=== PATIENT | female | born 1995 | race African-American/Black ===

== ENCOUNTER 2020-03-25 11:06 | Outpatient (CLI) | payer MEDICAID ==
[2016-03-04 04:39] VITALS: BMI 37.0
[~2020-03-25 11:06] MED LIST: MOTRIN600 MG PO; PERCOCET 5-3251 TAB PO; PRENAVITE1 TAB PO
[2020-03-25 11:59] LABS: UDS - AMPHET NEGATIVE QUAL (NEGATIVE); UDS - BARB NEGATIVE QUAL (NEGATIVE); UDS - BENZO NEGATIVE QUAL (NEGATIVE); UDS - COCAINE NEGATIVE QUAL (NEGATIVE); UDS - OPIATE NEGATIVE QUAL (NEGATIVE); UDS - PCP NEGATIVE QUAL (NEGATIVE); UDS - THC NEGATIVE QUAL (NEGATIVE)
[2020-03-25 12:30] LABS: BACTERIA FEW /HPF (NONE SEEN); BILIRUBIN NEGATIVE (NEGATIVE); EPITHELIAL CELLS OCC /hpf (0-5); KETONE NEGATIVE (NEGATIVE); NITRITE NEGATIVE (NEGATIVE); UROBILINOGEN NORMAL mg/dL (< 2); WHITE CELLS - URINE 0-5 HPF (0-4)
[2020-03-25] MEDS ORDERED: MACROBID100 MG PO (16:03)
== END 2020-03-25 14:49 | disposition home or self-care (01) ==
LOC: D.LDO 11:06
PROVIDERS: ATTEND Obstetrics & Gynecology
DX: O36.8190 Decreased fetal movements, unspecified trimester, not applicable or unspecified (principal)

== ENCOUNTER 2020-04-11 10:53 | Outpatient (CLI) | payer MEDICAID ==
[2016-03-04 04:39] VITALS: BMI 37.0
[~2020-04-11 10:53] MED LIST changes: +MACROBID100 MG PO
[2020-04-11] MEDS ORDERED: NORMODYNE / TR100 MG PO (11:07)
[2020-04-11] MEDS ORDERED: ZOLOFT25 MG PO (11:07)
== END 2020-04-11 11:39 | disposition home or self-care (01) ==
LOC: D.LDO 10:53
PROVIDERS: ATTEND Student in an Organized Health Care Education/Training Program
DX: O16.9 Unspecified maternal hypertension, unspecified trimester (principal)

== ENCOUNTER 2020-04-15 10:53 | Outpatient (CLI) | payer MEDICAID ==
[2016-03-04 04:39] VITALS: BMI 37.0
[~2020-04-15 10:53] MED LIST changes: +NORMODYNE / TR100 MG PO; +ZOLOFT25 MG PO
== END 2020-04-15 12:10 | disposition home or self-care (01) ==
LOC: D.LDO 10:53
PROVIDERS: ATTEND Student in an Organized Health Care Education/Training Program
DX: O16.9 Unspecified maternal hypertension, unspecified trimester (principal)

== ENCOUNTER 2020-04-18 10:59 | Outpatient (CLI) | payer MEDICAID ==
[2016-03-04 04:39] VITALS: BMI 37.0
== END 2020-04-18 11:46 | disposition home or self-care (01) ==
LOC: D.LDO 10:59
PROVIDERS: ATTEND Obstetrics & Gynecology
DX: O10.919 Unspecified pre-existing hypertension complicating pregnancy, unspecified trimester (principal)

== ENCOUNTER 2020-04-22 12:00 | Outpatient (CLI) | payer MEDICAID ==
[2016-03-04 04:39] VITALS: BMI 37.0
[2020-04-22 12:49] LABS: CALC OSMOLALITY 262 mosm/kg (275-300); CALCIUM 8.5 mg/dL (8.5-10.1); CARBON DIOXIDE 25.2 mmol/L (21.0-32.0); CHLORIDE - SERUM 102 mmol/L (98-107); CREATININE - SERUM 0.6 mg/dL (0.6-1.3); POTASSIUM - SERUM 3.6 mmol/L (3.5-5.1); SODIUM 134 mmol/L (136-145); UREA NITROGEN 5 mg/dL (7-18); eGFR NON AFRICAN AMERICAN > 90 mL/min (90-120)
[2020-04-22 12:51] LABS: GLUCOSE 64 mg/dL (74-106)
[2020-04-22 13:10] LABS: ALKALINE PHOSPHATASE 60 U/L (30-120); ALT (SGPT) 12 U/L (10-68); BILIRUBIN - DIRECT 0.05 mg/dL (0.00-0.30); BILIRUBIN - INDIRECT 0.21 mg/dL (0.00-1.00); BILIRUBIN - TOTAL 0.26 mg/dL (0.2-1.3); PROTEIN - SERUM 5.7 g/dL (6.4-8.2)
[2020-04-22 13:14] LABS: ALBUMIN 2.6 g/dL (3.4-5.0)
[2020-04-22 13:24] LABS: URIC ACID 3.5 mg/dL (2.6-7.2)
== END 2020-04-23 10:57 | disposition home or self-care (01) ==
LOC: OBSVTIME → D.LDO 12:00 → D.LD 22:38 → OBSVTIME 22:38 → D.LD 22:38 → D.LDO 22:38 → D.LD 04-23 10:57
PROVIDERS: ATTEND Obstetrics & Gynecology
DX: O36.0131 Maternal care for anti-D [Rh] antibodies, third trimester, fetus 1 (principal)

== ENCOUNTER 2020-04-23 19:35 | Outpatient (CLI) | payer MEDICAID ==
[2016-03-04 04:39] VITALS: BMI 37.0
== END 2020-04-23 19:57 | disposition home or self-care (01) ==
LOC: D.LDO 19:35
PROVIDERS: ATTEND Obstetrics & Gynecology
DX: O36.0191 Maternal care for anti-D [Rh] antibodies, unspecified trimester, fetus 1 (principal)

== ENCOUNTER 2020-04-25 11:20 | Outpatient (CLI) | payer MEDICAID ==
[2016-03-04 04:39] VITALS: BMI 37.0
== END 2020-04-25 12:11 | disposition home or self-care (01) ==
LOC: D.LDO 11:20
PROVIDERS: ATTEND Obstetrics & Gynecology
DX: O10.919 Unspecified pre-existing hypertension complicating pregnancy, unspecified trimester (principal)

== ENCOUNTER → 2020-04-29 12:29 | Outpatient (CLI) | payer MEDICAID ==
[2016-03-04 04:39] VITALS: BMI 37.0
== END | disposition home or self-care (01) ==
LOC: D.LDO 12:29
PROVIDERS: ATTEND Student in an Organized Health Care Education/Training Program
DX: O13.9 Gestational [pregnancy-induced] hypertension without significant proteinuria, unspecified trimester (principal); Z3A.00 Weeks of gestation of pregnancy not specified